=== PATIENT | male | born 1990 | race Caucasian/White ===

== ENCOUNTER 2024-03-20 14:40 | Outpatient (CLI) | payer BC, SELFPAY | END 2024-03-20 14:41 | disposition home or self-care (01) | LOC: NFLDUCREF 14:41 | PROVIDERS: PCP Family Medicine; Visit Provider Nurse Practitioner | DX: R07.9 Chest pain, unspecified (principal) | CPT/HCPCS: 84484 ==

== ENCOUNTER 2024-06-04 12:29 | Outpatient (CLI) | payer BC, SELFPAY ==
--- NOTE | 2024-06-04 13:35 | W.PM.STED ---
Stress Test Note Date Date Seen: 06/04/24 Date of test: 06/04/24 Providers Primary care provider: Mario Ferro Stress test physician: Radhika Cueva Stress Test Note Stress test ordered: Stress Echo Indication for test: Chest pain [facility] Results discussion: Resting EKG: Sinus rhythm, 62 beats per minute. Flipped T-waves lead V1, otherwise no significant abnormality noted. Resting blood pressure: 128/82 Stress test: Patient is consented on stress test ordered and agrees to proceed. Patient is exercise following standard Cash protocol treadmill stress test. Patient exercised to 9 minutes 42 seconds, stopping due to reaching his target heart rate and having met his exertional capacity. He exercised to an equivalent of 11.3 minutes. He did exercise to maximum heart rate of 168 beats per minute which was 105% of a calculated target of 160. He had a rate pressure product of 24,804. He did state he had some left lateral chest wall pain noted after exertion, he states this is the pain he does get every day. He did have flattening of his T-wave in V5, did have T-wave flipping in V6 and nondiagnostic mild ST segment change in V6. Changes were not meeting criteria for diagnosis of EKG changes with exercise. Patient's symptoms were improving as he was here. Did discuss ER evaluation but he declined. There are preliminarily no echo changes suggestive of any ischemia. Impression: Subjectively positive with chest pain in recovery, nondiagnostic EKG changes for ischemia: Patient declined ED evaluation, was having improvement in recovery with his chest symptoms. We will await echo images to couple this for a full formal diagnostic. Patient is a smoker, we did discuss the importance of healthy lifestyle which would include smoking cessation. He can work on risk factor modification with his primary care provider. If there is further concern for ischemic cardiac disease, further testing or Cardiology referral can be considered. Follow up suggested: Patient was discharged from here in stable condition, will await the echo images to couple this for a full formal diagnostic.
[2024-06-04 13:41] VITALS: BP 154/86; PULSE 87
[2024-06-04] MEDS: PERFLUTREN LIPID MICROSPHERES 2 ML VIAL IV (13:45)
== END 2024-06-04 12:30 | disposition home or self-care (01) ==
LOC: STRESS 12:30
PROVIDERS: PCP Family Medicine; Visit Provider Family Medicine
DX: R07.9 Chest pain, unspecified (principal)
CPT/HCPCS: 93016; 93325; 93351; Q9957

== ENCOUNTER 2024-09-11 12:12 | Outpatient (CLI) | payer BC, SELFPAY | END 2024-09-11 12:13 | disposition home or self-care (01) | PROVIDERS: PCP Family Medicine; Visit Provider Family Medicine | DX: R10.9 Unspecified abdominal pain (principal); N52.9 Male erectile dysfunction, unspecified; E78.5 Hyperlipidemia, unspecified; L90.0 Lichen sclerosus et atrophicus; F41.1 Generalized anxiety disorder | CPT/HCPCS: 80053; 80061; 83690; 84403; 85025 ==

== ENCOUNTER 2024-11-30 14:25 | Outpatient (CLI) | payer BC, SELFPAY | END 2024-11-30 14:26 | disposition home or self-care (01) | PROVIDERS: PCP Family Medicine; Visit Provider Family Medicine | DX: R79.89 Other specified abnormal findings of blood chemistry (principal) | CPT/HCPCS: 82671; 84270; 84402; 84403 ==

== ENCOUNTER 2025-05-04 08:15 | Outpatient (CLI) | payer BC, SELFPAY | END 2025-05-04 08:16 | disposition home or self-care (01) | LOC: FBOREF 08:15 | PROVIDERS: PCP Family Medicine; Visit Provider Family Medicine | DX: R79.89 Other specified abnormal findings of blood chemistry (principal) | CPT/HCPCS: 84403 ==

== ENCOUNTER 2025-11-16 07:53 | Outpatient (CLI) | payer BC, SELFPAY | END 2025-11-16 07:54 | disposition home or self-care (01) | PROVIDERS: PCP Family Medicine; Visit Provider Family Medicine | DX: R79.89 Other specified abnormal findings of blood chemistry (principal); Z13.6 Encounter for screening for cardiovascular disorders | CPT/HCPCS: 80053; 80061; 82670; 82728; 84270; 84402; 84403; 85025 ==